=== PATIENT | female | born 1955 | race Native Hawaiian/Other Pacific Islander ===

== ENCOUNTER 2017-02-23 06:31 | Day surgery (SDC) | payer BC ==
[2017-02-23 07:10] VITALS: BMI 19.8
[2017-02-23] MEDS ORDERED: Propofol 10 mg/ml Inj (20 ML) ONE (10:21)
[2017-02-23] MEDS ORDERED: Lactated Ringer's 1,000 ML IV ONE (10:23)
[2017-02-23] MEDS ORDERED: Lactated Ringer's 500 ML IV SCH (10:45)
[2017-02-23 11:03] VITALS: TEMP 97.3; O2SAT 100
[2017-02-23 11:38] VITALS: BP 142/71; PULSE 56; RESP 12
== END 2017-02-23 12:00 | disposition home or self-care (01) ==
LOC: C.ENDO 06:31
PROVIDERS: ATTEND Internal Medicine Gastroenterology
DX: Z09 Encounter for follow-up examination after completed treatment for conditions other than malignant neoplasm (principal); Z86.010 Personal history of colon polyps; K64.1 Second degree hemorrhoids
CPT/HCPCS: 45378; J2704; J7120